=== PATIENT | male | born 1945 | race Caucasian/White ===

== ENCOUNTER 2016-06-01 18:38 | Emergency (ER) | payer MEDICARE, OTHER ==
[~2016-06-01 18:38] MED LIST: ALLE180T33 PO; ALTA1CAP2 PO; ASPI1TAB PO; CRES20TA PO; I CAPS PO; VENL37.598 PO
[2016-06-01] MEDS ORDERED: NORCO, ANEXSIA 5/325MG TABLET (HYDROcodone/ACETAMINOPHEN) As Ordered ONE (21:21)
[2016-06-01] MEDS ORDERED: METHOCARBAMOL 500 MG TAB As Ordered ONE (21:21)
[2016-06-01 22:00] LABS: DIFF SLIDE NUMBER 248; MEAN CORPUSCULAR HEMOGLOBIN 30.3 pg (27.0-33.0); MEAN CORPUSCULAR HGB CONC 33.3 g/dl (32.0-36.5); MEAN CORPUSCULAR VOLUME 91.2 fl (80.0-96.0); PLATELET COUNT, AUTOMATED 261 k/mm3 (150-450); RED CELL DISTRIBUTION WIDTH 13.1 % (11.5-14.5); WHITE BLOOD COUNT 10.7 K/mm3 (4.0-10.0)
[2016-06-01 22:01] LABS: BASO # 0.1 K/mm3 (0.0-0.2); BASO % 0.9 % (0.0-1.0); EOS # 0.2 K/mm3 (0.0-0.50); EOS % 1.8 % (0.0-3.0); LARGE UNSTAINED CELL # 0.1 K/mm3 (0.0-0.4); LARGE UNSTAINED CELL % 1.2 % (0.0-4.0); LYMPH # 2.5 K/mm3 (1.5-4.5); LYMPH % 23.4 % (24.0-44.0); MONO # 0.9 K/mm3 (0.0-0.8); MONO % 8.3 % (0.0-5.0); NEUTROPHILS # 6.9 K/mm3 (1.8-7.7); NEUTROPHILS % 64.4 % (36.0-66.0)
[2016-06-01 22:02] LABS: ADD MORPHOLOGY? YES
[2016-06-01 22:07] LABS: ALBUMIN 3.7 GM/DL (3.2-5.2); ALBUMIN/GLOBULIN RATIO 0.93 (1.00-1.93); ALKALINE PHOSPHATASE 54 U/L (45-117); ALT/SGPT 27 U/L (12-78); ANION GAP 8 MEQ/L (8-16); AST/SGOT 14 U/L (15-37); BILIRUBIN,DIRECT 0.1 MG/DL (0.0-0.2); BILIRUBIN,TOTAL 0.6 MG/DL (0.2-1.0); BLOOD UREA NITROGEN 15 MG/DL (7-18); CALCIUM LEVEL 8.5 MG/DL (8.8-10.2); CARBON DIOXIDE LEVEL 30 MEQ/L (21-32); CHLORIDE LEVEL 105 MEQ/L (98-107); CREATININE FOR GFR 0.93 MG/DL (0.70-1.30); GLOMERULAR FILTRATION RATE > 60.0 (>49); GLUCOSE, FASTING 95 MG/DL (80-110); POTASSIUM SERUM 3.6 MEQ/L (3.5-5.1); SODIUM LEVEL 143 MEQ/L (136-145); TOTAL PROTEIN 7.7 GM/DL (6.4-8.2)
--- NOTE | 2016-06-01 22:29 | EDDOCDS ---
Nurse's Notes [facility] Name: Palomo Terrell Age: 70 yrs Sex: Male : 1945 Arrival Date: 06/01/2016 Time: 18:38 Bed PR1 / 25 Private MD: Vicenta Chauhan., DO Diagnosis: Strain of muscle and tendon of back wall of thorax Presentation: 06/01 18:59 Presenting complaint: Patient states: right sided flank/mid back pain started yesterday ttb around 12. Fell last week -- although no pain at that time. Denies n/v/d/c. Denies symptoms. Radiates around to front of abd. SOB with movement d/t pain. Adult Sepsis Screening: The patient does not have new or worsening altered mentation. Patient's respiratory rate is less than 22. Systolic blood pressure is greater than 100. Patient has a qSOFA score of 0- Negative Sepsis Screen. Suicide/Homicide risk assessment- the patient denies having any suicidal and/or homicidal ideations and does not present with any other emotional, behavioral or mental health complaints. Status: Patient is not a sales and service advisor or dependent. Transition of care: patient was not received from another setting of care. 18:59 Acuity: JAMES Level 3 ttb 18:59 Method Of Arrival: Walkin/Carried/Asstd ttb Triage Assessment: 19:04 General: Appears in no apparent distress, well nourished, well groomed, Behavior is ttb appropriate for age, cooperative, pleasant. Pain: Location: right flank/upper abd Pain currently is 7 out of 10 on a pain scale. At worst was 10 out of 10 on a pain scale. Pain radiates to right upper quadrant back. Neurological: Level of Consciousness is awake, alert. Cardiovascular: Chest pain is denied. Respiratory: Airway is patent Respiratory effort is even, unlabored, Reports SOB with pain Denies labored breathing. GI: Denies constipation, diarrhea, nausea, vomiting. GI: Reports upper abdominal pain. : Denies burning with urination, inability to void, urinary frequency, urgency. Derm: Skin is normal. Injury Description: pt fell from standing. Historical: - Allergies: no known allergies; - Home Meds: 1. ramipril 5 mg Oral cap 1 cap once daily (Last dose: 05/31/2016) 2. venlafaxine 37.5 mg oral cp24 1 cap once daily (Last dose: 06/01/2016 08:00) 3. rosuvastatin 20 mg oral tab 1 tab once daily (Last dose: 05/31/2016) 4. Marika 180 mg Oral tab 1 tab once daily (Last dose: 06/01/2016 08:00) 5. aspirin 81 mg oral TbEC (Last dose: 05/31/2016) 6. I-Caps 280-10-2 mg oral cap daily (Last dose: 05/31/2016) 7. Co Q-10 200 mg oral cap (Last dose: 05/31/2016) 8. Tylenol 325 mg Oral tab 2 tabs every 4 hours (Last dose: 06/01/2016 11:00) - PMHx: Hypertension; - PSHx: Cholecystectomy; - Social history: Smoking status: Patient states was never smoker of tobacco. Patient uses alcohol weekly. Patient/guardian denies using street drugs, No barriers to communication noted, The patient speaks fluent Czech, Speaks appropriately for age. - Family history: Not pertinent. - : The pt / caregiver states he / she is not on anticoagulants. Home medication list is obtained from the patient. - Exposure Risk Screening:: None identified. Screenin:34 Screening information is obtained from the patient. Fall risk: No risks identified. ck1 Assistance ADL's: requires no assistance with activities of daily living. Abuse/DV Screen: The patient / caregiver reports he/she is: not in a situation that causes fear, pain or injury. Nutritional screening: No deficits noted. Advance Directives: Currently, there is no health care proxy. home support is adequate. Assessment: 20:24 General: pt sitting in waiting room with daughter. NAD noted. Awaiting room.. ttb 20:34 General: Appears uncomfortable, Behavior is appropriate for age, cooperative. Pain: ck1 Location: right flank Pain currently is 6 out of 10 on a pain scale. Pain radiates to right upper quadrant Is episodic Aggravated by increased activity, repositioning. : Denies burning with urination, inability to void, urinary frequency. Derm: Skin is intact, is healthy with good turgor, Skin is pink, warm & dry. Musculoskeletal: No deficits noted. 22:26 General: Patient instructed on discharge instructions. Patient asked if there were any jmb questions regarding discharge, patient stated no. Patient signed discharge instructions. Patient discharged in stable condition. . Vital Signs: 18:41 BP 187 / 86; Pulse 94; Resp 18 S; Temp 98.6(O); Pulse Ox 97% on R/A; Weight 127.01 kg gr2 (R); Height 5 ft. 11 in. (180.34 cm) (R); Pain 8/10; 21:39 BP 144 / 98 LA Sitting (man/lg); jmb 22:26 BP 140 / 90; Pulse 84; Resp 20; Temp 97.6(O); Pulse Ox 99% on R/A; Pain 3/10; jmb 18:41 Body Mass Index 39.05 (127.01 kg, 180.34 cm) gr2 Vitals: 18:41 Log In Time: June 01, 2016 at 18:41. gr2 ED Course: 18:39 Patient visited by Lilian Ray. gr2 18:39 Patient moved to Waiting gr2 18:40 Vicenta Chauhan. is Private Physician. gr2 18:42 Patient visited by Lilian Ray. gr2 18:42 Patient moved to Pre RCE gr2 19:01 Triage Initiated ttb 20:25 Patient visited by Kirstin Domingo RN. ttb 20:29 Patient moved to Triage 3 jmb 20:34 The patient / caregiver is instructed regarding the plan of care and ED course. ck1 20:57 Derek Geller PA is PHCP. mo1 20:57 Martín Rudolph DO is Attending Physician. mo1 20:58 Patient visited by Derek Geller PA. mo1 21:32 Patient moved to TR1 jmb 21:32 Liver Profile Sent. jmb 21:32 BMP Sent. jmb 21:32 CBC with Diff Sent. jmb 21:54 [facility] Payment Agreement was scanned into [employer] and attached to record. gjb 22:15 Patient moved to PR1 / 25 jmb 22:16 Vicenta Chauhan. is Referral Physician. mo1 22:26 No IV's were initiated during this patient's visit. No procedures done that require jmb assistance. Administered Medications: 21:32 Drug: HYDROcodone-acetaminophen 1 tabs [hydrocodone 5 mg-acetaminophen 325 mg tablet (1 jmb tabs)] Route: PO; 21:32 Drug: Methocarbamol 1 grams [methocarbamol 500 mg tablet (2 tabs)] Route: PO; [facility] 22:12 CANCELLED (Other Intervention Used): Albuterol 2.5 mg Nebulizer once mo1 Order Results: Lab Order: UA; SPEC'M 06/01/16 00:00 Test: APPEARANCE, URINE; Value: CLEAR; Range: CLEAR; Status: F Test: COLOR, URINE; Value: YELLOW; Range: YELLOW; Status: F Test: PH,URINE; Value: 6.0; Range: 5.0-9.0; Units: UNITS; Status: F Test: SPECIFIC GRAVITY URINE AUTO; Value: 1.016; Range: 1.002-1.035; Status: F Test: PROTEIN, URINE AUTO; Value: NEGATIVE; Range: NEGATIVE; Units: mg/dL; Status: F Test: GLUCOSE, URINE (UA) AUTO; Value: NEGATIVE; Range: NEGATIVE; Units: mg/dL; Status: F Test: KETONE, URINE AUTO; Value: NEGATIVE; Range: NEGATIVE; Units: mg/dL; Status: F Test: UROBILINOGEN, URINE AUTO; Value: 0.2; Range: 0.0-2.0; Units: mg/dL; Status: F Test: BILIRUBIN, URINE AUTO; Value: NEGATIVE; Range: NEGATIVE; Status: F Test: NITRITE, URINE AUTO; Value: NEGATIVE; Range: NEGATIVE; Status: F Test: LEUKOCYTE ESTERASE, URINE AUTO; Value: NEGATIVE; Range: NEGATIVE; Status: F Test: BLOOD, URINE BLOOD; Value: NEGATIVE; Range: NEGATIVE; Status: F Test: WBC, URINE AUTO; Value: 0; Range: 0-3; Units: /HPF; Status: F Test: RBC, URINE AUTO; Value: 3; Range: 0-3; Units: /HPF; Status: F Test: BACTERIA, URINE AUTO; Value: NEGATIVE; Range: NEGATIVE; Status: F Test: SQUAMOUS EPITHELIAL CELL UR AU; Value: 0; Range: 0-6; Units: /HPF; Status: F Test: MUCUS, URINE; Value: SMALL; Range: NEGATIVE; Status: F Test: HYALINE CAST, URINE AUTO; Value: 0; Range: 0-1; Units: /LPF; Status: F Lab Order: CBC with Diff; SPEC'M 06/01/16 21:30 Test: WHITE BLOOD COUNT; Value: 10.7; Range: 4.0-10.0; Abnormal: Above high normal; Units: K/mm3; Status: F Test: RED BLOOD COUNT; Value: 4.77; Range: 4.30-6.10; Units: M/mm3; Status: F Test: HEMOGLOBIN; Value: 14.5; Range: 14.0-18.0; Units: g/dl; Status: F Test: HEMATOCRIT; Value: 43.5; Range: 42.0-52.0; Units: %; Status: F Test: MEAN CORPUSCULAR VOLUME; Value: 91.2; Range: 80.0-96.0; Units: fl; Status: F Test: MEAN CORPUSCULAR HEMOGLOBIN; Value: 30.3; Range: 27.0-33.0; Units: pg; Status: F Test: MEAN CORPUSCULAR HGB CONC; Value: 33.3; Range: 32.0-36.5; Units: g/dl; Status: F Test: RED CELL DISTRIBUTION WIDTH; Value: 13.1; Range: 11.5-14.5; Units: %; Status: F Test: PLATELET COUNT, AUTOMATED; Value: 261; Range: 150-450; Units: k/mm3; Status: F Test: NEUTROPHILS %; Value: 64.4; Range: 36.0-66.0; Units: %; Status: F Test: LYMPH %; Value: 23.4; Range: 24.0-44.0; Abnormal: Below low normal; Units: %; Status: F Test: MONO %; Value: 8.3; Range: 0.0-5.0; Abnormal: Above high normal; Units: %; Status: F Test: EOS %; Value: 1.8; Range: 0.0-3.0; Units: %; Status: F Test: BASO %; Value: 0.9; Range: 0.0-1.0; Units: %; Status: F Test: LARGE UNSTAINED CELL %; Value: 1.2; Range: 0.0-4.0; Units: %; Status: F Test: NEUTROPHILS #; Value: 6.9; Range: 1.8-7.7; Units: K/mm3; Status: F Test: LYMPH #; Value: 2.5; Range: 1.5-4.5; Units: K/mm3; Status: F Test: MONO #; Value: 0.9; Range: 0.0-0.8; Abnormal: Above high normal; Units: K/mm3; Status: F Test: EOS #; Value: 0.2; Range: 0.0-0.50; Units: K/mm3; Status: F Test: BASO #; Value: 0.1; Range: 0.0-0.2; Units: K/mm3; Status: F Test: LARGE UNSTAINED CELL #; Value: 0.1; Range: 0.0-0.4; Units: K/mm3; Status: F Lab Order: [facility]; SPEC'M 06/01/16 21:30 Test: GLUCOSE, FASTING; Value: 95; Range: 80-110; Units: MG/DL; Status: F Test: BLOOD UREA NITROGEN; Value: 15; Range: 7-18; Units: MG/DL; Status: F Test: CREATININE FOR GFR; Value: 0.93; Range: 0.70-1.30; Units: MG/DL; Status: F Test: GLOMERULAR FILTRATION RATE; Value: > 60.0; Range: >49; Status: F Test: SODIUM LEVEL; Value: 143; Range: 136-145; Units: MEQ/L; Status: F Test: POTASSIUM SERUM; Value: 3.6; Range: 3.5-5.1; Units: MEQ/L; Status: F Test: CHLORIDE LEVEL; Value: 105; Range: 98-107; Units: MEQ/L; Status: F Test: CARBON DIOXIDE LEVEL; Value: 30; Range: 21-32; Units: MEQ/L; Status: F Test: ANION GAP; Value: 8; Range: 8-16; Units: MEQ/L; Status: F Test: CALCIUM LEVEL; Value: 8.5; Range: 8.8-10.2; Abnormal: Below low normal; Units: MG/DL; Status: F Test Note: ; Units are mL/min/1.73 m2 Chronic Kidney Disease Staging per NKF: Stage I & II GFR >=60 Normal to Mildly Decreased Stage III GFR 30-59 Moderately Decreased Stage IV GFR 15-29 Severely Decreased Stage V GFR <15 Very Little GFR Left ESRD GFR <15 on BIOMEDICAL ENGINEERING TECHNICIAN Lab Order: Liver Profile; SPEC'M 06/01/16 21:30 Test: AST/SGOT; Value: 14; Range: 15-37; Abnormal: Below low normal; Units: U/L; Status: F Test: ALT/SGPT; Value: 27; Range: 12-78; Units: U/L; Status: F Test: ALKALINE PHOSPHATASE; Value: 54; Range: 45-117; Units: U/L; Status: F Test: BILIRUBIN,TOTAL; Value: 0.6; Range: 0.2-1.0; Units: MG/DL; Status: F Test: BILIRUBIN,DIRECT; Value: 0.1; Range: 0.0-0.2; Units: MG/DL; Status: F Test: TOTAL PROTEIN; Value: 7.7; Range: 6.4-8.2; Units: GM/DL; Status: F Test: ALBUMIN; Value: 3.7; Range: 3.2-5.2; Units: GM/DL; Status: F Test: ALBUMIN/GLOBULIN RATIO; Value: 0.93; Range: 1.00-1.93; Abnormal: Below low normal; Status: F Lab Order: RBC MORPH PROF NO CHARGE; SPEC'M 06/01/16 21:30 Test: PLATELET ESTIMATE; Range: NORMAL; Status: I Outcome: 22:16 Discharge ordered by Provider. mo1 22:26 Discharge Assessment: Patient awake, alert and oriented x 3. No cognitive and/or jmb functional deficits noted. Patient verbalized understanding of disposition instructions. Patient awake and alert. obeys commands, Oriented to person, place and time. Patient verbalized understanding of disposition instructions. Patient has no functional deficits. patient administered narcotics - yes. Pt provided with safe discharge. The following High Risk Discharge criteria are identified: None. Discharged to home ambulatory, with family. Condition: stable. Discharge instructions given to patient, family, Instructed on discharge instructions, follow up and referral plans. medication usage, Demonstrated understanding of instructions, medications, Pt was receptive of discharge instructions/ teaching. Prescriptions given X 2. No special radiology studies were completed. Property sent home with patient. 22:28 Patient left the ED. b Signatures: Ayleen Lopez RN RN ck1 Kirstin Domingo RN RN ttb Lilian Ray gr2 Derek Geller PA PA mo1 Justin Neal,RN RN Riri Harris MTDD
--- NOTE | 2016-06-01 22:29 | EDDOCDS ---
Physician Documentation [facility] Name: Palomo Terrell Age: 70 yrs Sex: Male : 1945 Arrival Date: 06/01/2016 Time: 18:38 Bed PR Private MD: Vicenta Chauhan., DO Disposition: 06/01/16 22:16 Discharged to Home/Self Care. Impression: Strain of muscle and tendon of back wall of thorax. - Condition is Stable. - Discharge Instructions: Back Pain, Adult, Muscle Strain. - Prescriptions for [place] 5- 325 mg Oral Tablet - take 1 tablet by ORAL route every 6 hours As needed MDD: 4 tabs; 12 tablet. Robaxin 500 mg Oral Tablet - take 2 tablet by ORAL route every 6 hours As needed; 40 tablet. - Medication Reconciliation, Local Pharmacy Hours form. - Follow up: Vicenta Chauhan.; When: Call to arrange an appointment; Reason: Recheck today's complaints, Continuance of care. - Problem is new. - Symptoms are unchanged. Historical: - Allergies: no known allergies; - Home Meds: 1. ramipril 5 mg Oral cap 1 cap once daily (Last dose: 05/31/2016) 2. venlafaxine 37.5 mg oral cp24 1 cap once daily (Last dose: 06/01/2016 08:00) 3. rosuvastatin 20 mg oral tab 1 tab once daily (Last dose: 05/31/2016) 4. Marika 180 mg Oral tab 1 tab once daily (Last dose: 06/01/2016 08:00) 5. aspirin 81 mg oral TbEC (Last dose: 05/31/2016) 6. I-Caps 280-10-2 mg oral cap daily (Last dose: 05/31/2016) 7. Co Q-10 200 mg oral cap (Last dose: 05/31/2016) 8. Tylenol 325 mg Oral tab 2 tabs every 4 hours (Last dose: 06/01/2016 11:00) - PMHx: Hypertension; - PSHx: Cholecystectomy; - Social history: Smoking status: Patient states was never smoker of tobacco. Patient uses alcohol weekly. Patient/guardian denies using street drugs, No barriers to communication noted, The patient speaks fluent Romansh, Speaks appropriately for age. - Family history: Not pertinent. - : The pt / caregiver states he / she is not on anticoagulants. Home medication list is obtained from the patient. - Exposure Risk Screening:: None identified. Vital Signs: 06/01 18:41 BP 187 / 86; Pulse 94; Resp 18 S; Temp 98.6(O); Pulse Ox 97% on R/A; Weight 127.01 kg / gr2 280.01 lbs (R); Height 5 ft. 11 in. (180.34 cm) (R); Pain 8/10; 21:39 BP 144 / 98 LA Sitting (man/lg); jmb 22:26 BP 140 / 90; Pulse 84; Resp 20; Temp 97.6(O); Pulse Ox 99% on R/A; Pain 3/10; jmb 18:41 Body Mass Index 39.05 (127.01 kg, 180.34 cm) gr2 MDM: 19:12 UA Ordered. EDMS 20:57 UA Reviewed. mo1 21:19 HYDROcodone-acetaminophen 5 mg-325 mg 1 tabs PO once ordered. mo1 21:19 Methocarbamol 1 grams PO once ordered. mo1 21:20 CBC with Diff Ordered. EDMS 21:20 BMP Ordered. EDMS 21:20 Liver Profile Ordered. EDMS 21:20 Rib Unilat W/PA Chest Only Ordered. EDMS 21:43 Financial registration complete. b 21:54 [facility] Payment Agreement was scanned into [employer] and attached to record. gjb 22:03 RBC MORPH PROF NO CHARGE Ordered. EDMS 22:10 Liver Profile Reviewed. mo1 22:10 BMP Reviewed. mo1 22:10 CBC with Diff Reviewed. mo1 22:12 RBC MORPH PROF NO CHARGE Reviewed. mo1 Administered Medications: 21:32 Drug: HYDROcodone-acetaminophen 1 tabs [hydrocodone 5 mg-acetaminophen 325 mg tablet (1 jmb tabs)] Route: PO; 21:32 Drug: Methocarbamol 1 grams [methocarbamol 500 mg tablet (2 tabs)] Route: PO; jmb 22:12 CANCELLED (Other Intervention Used): Albuterol 2.5 mg Nebulizer once mo1 Signatures: Dispatcher [employer] EDMS Ayleen Lopez RN RN ck1 Kirstin Domingo RN RN ttDerek Echavarria PA PA mo1 Justin Neal RN RN Riri Harris The chart was reviewed and I authenticate all verbal orders and agree with the evaluation and treatment provided.Corrections: (The following items were deleted from the chart) 22:12 22:11 Albuterol 2.5 mg Nebulizer once ordered. mo1 mo1 Attachments: 21:54 [facility] Payment Agreement harshil MTDD
[2016-06-01 22:36] LABS: PLATELET CLUMPS SMALL AMT
--- NOTE | 2016-06-01 23:09 | REP ---
Clinical: Trauma. Cough. Technique: Frontal view of the chest with multiple views of the right hemithorax. Findings: Frontal view of the chest demonstrates no acute cardiopulmonary process. Multiple views of the right hemithorax demonstrates no obvious acute rib fracture or pathology. Impression: Normal right rib series Signed by Chucho Ventura MD 06/01/2016 11:01 P
--- NOTE | 2016-06-03 23:29 | EDDOCDS ---
Physician Documentation [facility] Name: Palomo Terrell Age: 70 yrs Sex: Male : 1945 Arrival Date: 06/01/2016 Time: 18:38 Bed PR Private MD: Vicenta Chauhan., DO Disposition: 06/01/16 22:16 Discharged to Home/Self Care. Impression: Strain of muscle and tendon of back wall of thorax. - Condition is Stable. - Discharge Instructions: Back Pain, Adult, Muscle Strain. - Prescriptions for [place] 5- 325 mg Oral Tablet - take 1 tablet by ORAL route every 6 hours As needed MDD: 4 tabs; 12 tablet. Robaxin 500 mg Oral Tablet - take 2 tablet by ORAL route every 6 hours As needed; 40 tablet. - Medication Reconciliation, Local Pharmacy Hours form. - Follow up: Vicenta Chauhan.; When: Call to arrange an appointment; Reason: Recheck today's complaints, Continuance of care. - Problem is new. - Symptoms are unchanged. Historical: - Allergies: no known allergies; - Home Meds: 1. ramipril 5 mg Oral cap 1 cap once daily (Last dose: 05/31/2016) 2. venlafaxine 37.5 mg oral cp24 1 cap once daily (Last dose: 06/01/2016 08:00) 3. rosuvastatin 20 mg oral tab 1 tab once daily (Last dose: 05/31/2016) 4. Marika 180 mg Oral tab 1 tab once daily (Last dose: 06/01/2016 08:00) 5. aspirin 81 mg oral TbEC (Last dose: 05/31/2016) 6. I-Caps 280-10-2 mg oral cap daily (Last dose: 05/31/2016) 7. Co Q-10 200 mg oral cap (Last dose: 05/31/2016) 8. Tylenol 325 mg Oral tab 2 tabs every 4 hours (Last dose: 06/01/2016 11:00) - PMHx: Hypertension; - PSHx: Cholecystectomy; - Social history: Smoking status: Patient states was never smoker of tobacco. Patient uses alcohol weekly. Patient/guardian denies using street drugs, No barriers to communication noted, The patient speaks fluent Cameroonian, Speaks appropriately for age. - Family history: Not pertinent. - : The pt / caregiver states he / she is not on anticoagulants. Home medication list is obtained from the patient. - Exposure Risk Screening:: None identified. Vital Signs: 06/01 18:41 BP 187 / 86; Pulse 94; Resp 18 S; Temp 98.6(O); Pulse Ox 97% on R/A; Weight 127.01 kg / gr2 280.01 lbs (R); Height 5 ft. 11 in. (180.34 cm) (R); Pain 8/10; 21:39 BP 144 / 98 LA Sitting (man/lg); jmb 22:26 BP 140 / 90; Pulse 84; Resp 20; Temp 97.6(O); Pulse Ox 99% on R/A; Pain 3/10; jmb 18:41 Body Mass Index 39.05 (127.01 kg, 180.34 cm) gr2 MDM: 19:12 UA Ordered. EDMS 20:57 UA Reviewed. mo1 21:19 HYDROcodone-acetaminophen 5 mg-325 mg 1 tabs PO once ordered. mo1 21:19 Methocarbamol 1 grams PO once ordered. mo1 21:20 CBC with Diff Ordered. EDMS 21:20 BMP Ordered. EDMS 21:20 Liver Profile Ordered. EDMS 21:20 Rib Unilat W/PA Chest Only Ordered. EDMS 21:43 Financial registration complete. gjb 21:54 [facility] Payment Agreement was scanned into [employer] and attached to record. gjb 22:03 RBC MORPH PROF NO CHARGE Ordered. EDMS 22:10 Liver Profile Reviewed. mo1 22:10 BMP Reviewed. mo1 22:10 CBC with Diff Reviewed. mo1 22:12 RBC MORPH PROF NO CHARGE Reviewed. mo1 06/02 07:21 T-Sheet-- Draft Copy was scanned into [employer] and attached to record. gb Administered Medications: 06/01 21:32 Drug: HYDROcodone-acetaminophen 1 tabs [hydrocodone 5 mg-acetaminophen 325 mg tablet (1 jmb tabs)] Route: PO; 21:32 Drug: Methocarbamol 1 grams [methocarbamol 500 mg tablet (2 tabs)] Route: PO; jmb 22:12 CANCELLED (Other Intervention Used): Albuterol 2.5 mg Nebulizer once mo1 Signatures: Dispatcher [employer] EDMS Heather Cain, Reg Reg gb Ayleen Lopez RN RN ck1 Kirstin Domingo RN RN gatitob Derek Geller PA PA mo1 Justin Neal RN RN Riri Harris The chart was reviewed and I authenticate all verbal orders and agree with the evaluation and treatment provided.Corrections: (The following items were deleted from the chart) 22:12 22:11 Albuterol 2.5 mg Nebulizer once ordered. mo1 mo1 Attachments: 21:54 [facility] Payment Agreement gjesther 06/02 07:21 T-Sheet-- Draft Copy gb Chart Complete MTDD
--- NOTE | 2016-06-03 23:29 | EDDOCDS ---
Physician Documentation [facility] Name: Palomo Terrell Age: 70 yrs Sex: Male : 1945 Arrival Date: 06/01/2016 Time: 18:38 Bed PR Private MD: Vicenta Chauhan., DO Disposition: 06/01/16 22:16 Discharged to Home/Self Care. Impression: Strain of muscle and tendon of back wall of thorax. - Condition is Stable. - Discharge Instructions: Back Pain, Adult, Muscle Strain. - Prescriptions for [place] 5- 325 mg Oral Tablet - take 1 tablet by ORAL route every 6 hours As needed MDD: 4 tabs; 12 tablet. Robaxin 500 mg Oral Tablet - take 2 tablet by ORAL route every 6 hours As needed; 40 tablet. - Medication Reconciliation, Local Pharmacy Hours form. - Follow up: Vicenta Chauhan.; When: Call to arrange an appointment; Reason: Recheck today's complaints, Continuance of care. - Problem is new. - Symptoms are unchanged. Historical: - Allergies: no known allergies; - Home Meds: 1. ramipril 5 mg Oral cap 1 cap once daily (Last dose: 05/31/2016) 2. venlafaxine 37.5 mg oral cp24 1 cap once daily (Last dose: 06/01/2016 08:00) 3. rosuvastatin 20 mg oral tab 1 tab once daily (Last dose: 05/31/2016) 4. Marika 180 mg Oral tab 1 tab once daily (Last dose: 06/01/2016 08:00) 5. aspirin 81 mg oral TbEC (Last dose: 05/31/2016) 6. I-Caps 280-10-2 mg oral cap daily (Last dose: 05/31/2016) 7. Co Q-10 200 mg oral cap (Last dose: 05/31/2016) 8. Tylenol 325 mg Oral tab 2 tabs every 4 hours (Last dose: 06/01/2016 11:00) - PMHx: Hypertension; - PSHx: Cholecystectomy; - Social history: Smoking status: Patient states was never smoker of tobacco. Patient uses alcohol weekly. Patient/guardian denies using street drugs, No barriers to communication noted, The patient speaks fluent Greek, Speaks appropriately for age. - Family history: Not pertinent. - : The pt / caregiver states he / she is not on anticoagulants. Home medication list is obtained from the patient. - Exposure Risk Screening:: None identified. Vital Signs: 06/01 18:41 BP 187 / 86; Pulse 94; Resp 18 S; Temp 98.6(O); Pulse Ox 97% on R/A; Weight 127.01 kg / gr2 280.01 lbs (R); Height 5 ft. 11 in. (180.34 cm) (R); Pain 8/10; 21:39 BP 144 / 98 LA Sitting (man/lg); jmb 22:26 BP 140 / 90; Pulse 84; Resp 20; Temp 97.6(O); Pulse Ox 99% on R/A; Pain 3/10; jmb 18:41 Body Mass Index 39.05 (127.01 kg, 180.34 cm) gr2 MDM: 19:12 UA Ordered. EDMS 20:57 UA Reviewed. mo1 21:19 HYDROcodone-acetaminophen 5 mg-325 mg 1 tabs PO once ordered. mo1 21:19 Methocarbamol 1 grams PO once ordered. mo1 21:20 CBC with Diff Ordered. EDMS 21:20 BMP Ordered. EDMS 21:20 Liver Profile Ordered. EDMS 21:20 Rib Unilat W/PA Chest Only Ordered. EDMS 21:43 Financial registration complete. gjb 21:54 [facility] Payment Agreement was scanned into [employer] and attached to record. gjb 22:03 RBC MORPH PROF NO CHARGE Ordered. EDMS 22:10 Liver Profile Reviewed. mo1 22:10 BMP Reviewed. mo1 22:10 CBC with Diff Reviewed. mo1 22:12 RBC MORPH PROF NO CHARGE Reviewed. mo1 06/02 07:21 T-Sheet-- Draft Copy was scanned into [employer] and attached to record. gb Administered Medications: 06/01 21:32 Drug: HYDROcodone-acetaminophen 1 tabs [hydrocodone 5 mg-acetaminophen 325 mg tablet (1 jmb tabs)] Route: PO; 21:32 Drug: Methocarbamol 1 grams [methocarbamol 500 mg tablet (2 tabs)] Route: PO; jmb 22:12 CANCELLED (Other Intervention Used): Albuterol 2.5 mg Nebulizer once mo1 Signatures: Dispatcher [employer] EDMS Heather Cain, Reg Reg gb Ayleen Lopez RN RN ck1 Kirstin Domingo RN RN gatitob Derek Geller PA PA mo1 Justin Neal RN RN Riri Harirs The chart was reviewed and I authenticate all verbal orders and agree with the evaluation and treatment provided.Corrections: (The following items were deleted from the chart) 22:12 22:11 Albuterol 2.5 mg Nebulizer once ordered. mo1 mo1 Attachments: 21:54 [facility] Payment Agreement [employer]her 06/02 07:21 T-Sheet-- Draft Copy gb Chart Complete MTDD
--- NOTE | 2016-06-03 23:30 | EDDOCDS ---
Nurse's Notes [facility] Name: Palomo Terrell Age: 70 yrs Sex: Male : 1945 Arrival Date: 06/01/2016 Time: 18:38 Bed PR1 / 25 Private MD: Vicenta Chauhan., DO Diagnosis: Strain of muscle and tendon of back wall of thorax Presentation: 06/01 18:59 Presenting complaint: Patient states: right sided flank/mid back pain started yesterday ttb around 12. Fell last week -- although no pain at that time. Denies n/v/d/c. Denies symptoms. Radiates around to front of abd. SOB with movement d/t pain. Adult Sepsis Screening: The patient does not have new or worsening altered mentation. Patient's respiratory rate is less than 22. Systolic blood pressure is greater than 100. Patient has a qSOFA score of 0- Negative Sepsis Screen. Suicide/Homicide risk assessment- the patient denies having any suicidal and/or homicidal ideations and does not present with any other emotional, behavioral or mental health complaints. Status: Patient is not a real estate services coordinator or dependent. Transition of care: patient was not received from another setting of care. 18:59 Acuity: JAMES Level 3 ttb 18:59 Method Of Arrival: Walkin/Carried/Asstd ttb Triage Assessment: 19:04 General: Appears in no apparent distress, well nourished, well groomed, Behavior is ttb appropriate for age, cooperative, pleasant. Pain: Location: right flank/upper abd Pain currently is 7 out of 10 on a pain scale. At worst was 10 out of 10 on a pain scale. Pain radiates to right upper quadrant back. Neurological: Level of Consciousness is awake, alert. Cardiovascular: Chest pain is denied. Respiratory: Airway is patent Respiratory effort is even, unlabored, Reports SOB with pain Denies labored breathing. GI: Denies constipation, diarrhea, nausea, vomiting. GI: Reports upper abdominal pain. : Denies burning with urination, inability to void, urinary frequency, urgency. Derm: Skin is normal. Injury Description: pt fell from standing. Historical: - Allergies: no known allergies; - Home Meds: 1. ramipril 5 mg Oral cap 1 cap once daily (Last dose: 05/31/2016) 2. venlafaxine 37.5 mg oral cp24 1 cap once daily (Last dose: 06/01/2016 08:00) 3. rosuvastatin 20 mg oral tab 1 tab once daily (Last dose: 05/31/2016) 4. Marika 180 mg Oral tab 1 tab once daily (Last dose: 06/01/2016 08:00) 5. aspirin 81 mg oral TbEC (Last dose: 05/31/2016) 6. I-Caps 280-10-2 mg oral cap daily (Last dose: 05/31/2016) 7. Co Q-10 200 mg oral cap (Last dose: 05/31/2016) 8. Tylenol 325 mg Oral tab 2 tabs every 4 hours (Last dose: 06/01/2016 11:00) - PMHx: Hypertension; - PSHx: Cholecystectomy; - Social history: Smoking status: Patient states was never smoker of tobacco. Patient uses alcohol weekly. Patient/guardian denies using street drugs, No barriers to communication noted, The patient speaks fluent Frisian, Speaks appropriately for age. - Family history: Not pertinent. - : The pt / caregiver states he / she is not on anticoagulants. Home medication list is obtained from the patient. - Exposure Risk Screening:: None identified. Screenin:34 Screening information is obtained from the patient. Fall risk: No risks identified. ck1 Assistance ADL's: requires no assistance with activities of daily living. Abuse/DV Screen: The patient / caregiver reports he/she is: not in a situation that causes fear, pain or injury. Nutritional screening: No deficits noted. Advance Directives: Currently, there is no health care proxy. home support is adequate. Assessment: 20:24 General: pt sitting in waiting room with daughter. NAD noted. Awaiting room.. ttb 20:34 General: Appears uncomfortable, Behavior is appropriate for age, cooperative. Pain: ck1 Location: right flank Pain currently is 6 out of 10 on a pain scale. Pain radiates to right upper quadrant Is episodic Aggravated by increased activity, repositioning. : Denies burning with urination, inability to void, urinary frequency. Derm: Skin is intact, is healthy with good turgor, Skin is pink, warm & dry. Musculoskeletal: No deficits noted. 22:26 General: Patient instructed on discharge instructions. Patient asked if there were any jmb questions regarding discharge, patient stated no. Patient signed discharge instructions. Patient discharged in stable condition. . Vital Signs: 18:41 BP 187 / 86; Pulse 94; Resp 18 S; Temp 98.6(O); Pulse Ox 97% on R/A; Weight 127.01 kg gr2 (R); Height 5 ft. 11 in. (180.34 cm) (R); Pain 8/10; 21:39 BP 144 / 98 LA Sitting (man/lg); jmb 22:26 BP 140 / 90; Pulse 84; Resp 20; Temp 97.6(O); Pulse Ox 99% on R/A; Pain 3/10; jmb 18:41 Body Mass Index 39.05 (127.01 kg, 180.34 cm) gr2 Vitals: 18:41 Log In Time: June 01, 2016 at 18:41. gr2 ED Course: 18:39 Patient visited by Lilian Ray. gr2 18:39 Patient moved to Waiting gr2 18:40 Vicenta Chauhan. is Private Physician. gr2 18:42 Patient visited by Lilian Ray. gr2 18:42 Patient moved to Pre RCE gr2 19:01 Triage Initiated ttb 20:25 Patient visited by Kirstin Domingo RN. ttb 20:29 Patient moved to Triage 3 jmb 20:34 The patient / caregiver is instructed regarding the plan of care and ED course. ck1 20:57 Derek Geller PA is PHCP. mo1 20:57 Martín Rudolph DO is Attending Physician. mo1 20:58 Patient visited by Derek Geller PA. mo1 21:32 Patient moved to TR1 jmb 21:32 Liver Profile Sent. jmb 21:32 BMP Sent. jmb 21:32 CBC with Diff Sent. jmb 21:54 [facility] Payment Agreement was scanned into [employer] and attached to record. gjb 22:15 Patient moved to PR1 / 25 jmb 22:16 Vicenta Chauhan. is Referral Physician. mo1 22:26 No IV's were initiated during this patient's visit. No procedures done that require jmb assistance. 23:49 Rib Unilat W/PA Chest Only Returned. EDMS 06/02 07:21 T-Sheet-- Draft Copy was scanned into [employer] and attached to record. gb Administered Medications: 06/01 21:32 Drug: HYDROcodone-acetaminophen 1 tabs [hydrocodone 5 mg-acetaminophen 325 mg tablet (1 jmb tabs)] Route: PO; 21:32 Drug: Methocarbamol 1 grams [methocarbamol 500 mg tablet (2 tabs)] Route: PO; jmb 22:12 CANCELLED (Other Intervention Used): Albuterol 2.5 mg Nebulizer once mo1 Order Results: Lab Order: UA; SPEC'M 06/01/16 00:00 Test: APPEARANCE, URINE; Value: CLEAR; Range: CLEAR; Status: F Test: COLOR, URINE; Value: YELLOW; Range: YELLOW; Status: F Test: PH,URINE; Value: 6.0; Range: 5.0-9.0; Units: UNITS; Status: F Test: SPECIFIC GRAVITY URINE AUTO; Value: 1.016; Range: 1.002-1.035; Status: F Test: PROTEIN, URINE AUTO; Value: NEGATIVE; Range: NEGATIVE; Units: mg/dL; Status: F Test: GLUCOSE, URINE (UA) AUTO; Value: NEGATIVE; Range: NEGATIVE; Units: mg/dL; Status: F Test: KETONE, URINE AUTO; Value: NEGATIVE; Range: NEGATIVE; Units: mg/dL; Status: F Test: UROBILINOGEN, URINE AUTO; Value: 0.2; Range: 0.0-2.0; Units: mg/dL; Status: F Test: BILIRUBIN, URINE AUTO; Value: NEGATIVE; Range: NEGATIVE; Status: F Test: NITRITE, URINE AUTO; Value: NEGATIVE; Range: NEGATIVE; Status: F Test: LEUKOCYTE ESTERASE, URINE AUTO; Value: NEGATIVE; Range: NEGATIVE; Status: F Test: BLOOD, URINE BLOOD; Value: NEGATIVE; Range: NEGATIVE; Status: F Test: WBC, URINE AUTO; Value: 0; Range: 0-3; Units: /HPF; Status: F Test: RBC, URINE AUTO; Value: 3; Range: 0-3; Units: /HPF; Status: F Test: BACTERIA, URINE AUTO; Value: NEGATIVE; Range: NEGATIVE; Status: F Test: SQUAMOUS EPITHELIAL CELL UR AU; Value: 0; Range: 0-6; Units: /HPF; Status: F Test: MUCUS, URINE; Value: SMALL; Range: NEGATIVE; Status: F Test: HYALINE CAST, URINE AUTO; Value: 0; Range: 0-1; Units: /LPF; Status: F Lab Order: CBC with Diff; SPEC'M 06/01/16 21:30 Test: WHITE BLOOD COUNT; Value: 10.7; Range: 4.0-10.0; Abnormal: Above high normal; Units: K/mm3; Status: F Test: RED BLOOD COUNT; Value: 4.77; Range: 4.30-6.10; Units: M/mm3; Status: F Test: HEMOGLOBIN; Value: 14.5; Range: 14.0-18.0; Units: g/dl; Status: F Test: HEMATOCRIT; Value: 43.5; Range: 42.0-52.0; Units: %; Status: F Test: MEAN CORPUSCULAR VOLUME; Value: 91.2; Range: 80.0-96.0; Units: fl; Status: F Test: MEAN CORPUSCULAR HEMOGLOBIN; Value: 30.3; Range: 27.0-33.0; Units: pg; Status: F Test: MEAN CORPUSCULAR HGB CONC; Value: 33.3; Range: 32.0-36.5; Units: g/dl; Status: F Test: RED CELL DISTRIBUTION WIDTH; Value: 13.1; Range: 11.5-14.5; Units: %; Status: F Test: PLATELET COUNT, AUTOMATED; Value: 261; Range: 150-450; Units: k/mm3; Status: F Test: NEUTROPHILS %; Value: 64.4; Range: 36.0-66.0; Units: %; Status: F Test: LYMPH %; Value: 23.4; Range: 24.0-44.0; Abnormal: Below low normal; Units: %; Status: F Test: MONO %; Value: 8.3; Range: 0.0-5.0; Abnormal: Above high normal; Units: %; Status: F Test: EOS %; Value: 1.8; Range: 0.0-3.0; Units: %; Status: F Test: BASO %; Value: 0.9; Range: 0.0-1.0; Units: %; Status: F Test: LARGE UNSTAINED CELL %; Value: 1.2; Range: 0.0-4.0; Units: %; Status: F Test: NEUTROPHILS #; Value: 6.9; Range: 1.8-7.7; Units: K/mm3; Status: F Test: LYMPH #; Value: 2.5; Range: 1.5-4.5; Units: K/mm3; Status: F Test: MONO #; Value: 0.9; Range: 0.0-0.8; Abnormal: Above high normal; Units: K/mm3; Status: F Test: EOS #; Value: 0.2; Range: 0.0-0.50; Units: K/mm3; Status: F Test: BASO #; Value: 0.1; Range: 0.0-0.2; Units: K/mm3; Status: F Test: LARGE UNSTAINED CELL #; Value: 0.1; Range: 0.0-0.4; Units: K/mm3; Status: F Lab Order: [facility] 06/01/16 21:30 Test: GLUCOSE, FASTING; Value: 95; Range: 80-110; Units: MG/DL; Status: F Test: BLOOD UREA NITROGEN; Value: 15; Range: 7-18; Units: MG/DL; Status: F Test: CREATININE FOR GFR; Value: 0.93; Range: 0.70-1.30; Units: MG/DL; Status: F Test: GLOMERULAR FILTRATION RATE; Value: > 60.0; Range: >49; Status: F Test: SODIUM LEVEL; Value: 143; Range: 136-145; Units: MEQ/L; Status: F Test: POTASSIUM SERUM; Value: 3.6; Range: 3.5-5.1; Units: MEQ/L; Status: F Test: CHLORIDE LEVEL; Value: 105; Range: 98-107; Units: MEQ/L; Status: F Test: CARBON DIOXIDE LEVEL; Value: 30; Range: 21-32; Units: MEQ/L; Status: F Test: ANION GAP; Value: 8; Range: 8-16; Units: MEQ/L; Status: F Test: CALCIUM LEVEL; Value: 8.5; Range: 8.8-10.2; Abnormal: Below low normal; Units: MG/DL; Status: F Test Note: ; Units are mL/min/1.73 m2 Chronic Kidney Disease Staging per NKF: Stage I & II GFR >=60 Normal to Mildly Decreased Stage III GFR 30-59 Moderately Decreased Stage IV GFR 15-29 Severely Decreased Stage V GFR <15 Very Little GFR Left ESRD GFR <15 on SOAKING TANK WORKER Lab Order: Liver Profile; SPEC'M 06/01/16 21:30 Test: AST/SGOT; Value: 14; Range: 15-37; Abnormal: Below low normal; Units: U/L; Status: F Test: ALT/SGPT; Value: 27; Range: 12-78; Units: U/L; Status: F Test: ALKALINE PHOSPHATASE; Value: 54; Range: 45-117; Units: U/L; Status: F Test: BILIRUBIN,TOTAL; Value: 0.6; Range: 0.2-1.0; Units: MG/DL; Status: F Test: BILIRUBIN,DIRECT; Value: 0.1; Range: 0.0-0.2; Units: MG/DL; Status: F Test: TOTAL PROTEIN; Value: 7.7; Range: 6.4-8.2; Units: GM/DL; Status: F Test: ALBUMIN; Value: 3.7; Range: 3.2-5.2; Units: GM/DL; Status: F Test: ALBUMIN/GLOBULIN RATIO; Value: 0.93; Range: 1.00-1.93; Abnormal: Below low normal; Status: F Lab Order: RBC MORPH PROF NO CHARGE; SPEC'M 06/01/16 21:30 Test: PLATELET ESTIMATE; Range: NORMAL; Status: I Test: RBC MORPHOLOGY; Value: NORMAL; Status: F Test: PLATELET CLUMPS; Value: SMALL AMT; Status: F Test: PLATELET ESTIMATE; Value: INVALID; Range: NORMAL; Status: F Radiology Order: Rib Unilat W/PA Chest Only Test: Rib Unilat W/PA Chest Only REASON FOR EXAMINATION: Trauma;Cough; Clinical: Trauma. Cough.; ; Technique: Frontal view of the chest with multiple views of the right; hemithorax.; ; Findings:; Frontal view of the chest demonstrates no acute cardiopulmonary process.; Multiple views of the right hemithorax demonstrates no obvious acute rib fracture; or pathology.; ; Impression:; Normal right rib series; ; ; Signed by; Chucho Ventura MD 06/01/2016 11:01 P; Outcome: 22:16 Discharge ordered by Provider. mo1 22:26 Discharge Assessment: Patient awake, alert and oriented x 3. No cognitive and/or jmb functional deficits noted. Patient verbalized understanding of disposition instructions. Patient awake and alert. obeys commands, Oriented to person, place and time. Patient verbalized understanding of disposition instructions. Patient has no functional deficits. patient administered narcotics - yes. Pt provided with safe discharge. The following High Risk Discharge criteria are identified: None. Discharged to home ambulatory, with family. Condition: stable. Discharge instructions given to patient, family, Instructed on discharge instructions, follow up and referral plans. medication usage, Demonstrated understanding of instructions, medications, Pt was receptive of discharge instructions/ teaching. Prescriptions given X 2. No special radiology studies were completed. Property sent home with patient. 22:28 Patient left the ED. panchito Signatures: Dispatcher [employer] EDMS Heather Cain, Reg Reg Ayleen Lopez,RN RN ck1 Kirstin Domingo RN RN Lilian Quintero gr2 Derek Geller PA PA mo1 Justin Neal RN RN Riri Harris Chart Complete MTDNegrito
== END 2016-06-01 22:28 | disposition home or self-care (01) ==
LOC: M ED 18:38
DX: S29.012A Strain of muscle and tendon of back wall of thorax, initial encounter (principal); W18.09XA Striking against other object with subsequent fall, initial encounter; Y92.89 Other specified places as the place of occurrence of the external cause; Y93.89 Activity, other specified; Y99.8 Other external cause status; I10 Essential (primary) hypertension; Z90.49 Acquired absence of other specified parts of digestive tract; Z79.82 Long term (current) use of aspirin; Z79.899 Other long term (current) drug therapy

== ENCOUNTER → 2016-07-07 | Outpatient (REF) | payer MEDICARE, OTHER | LOC: M LAB REF 11:58 | PROVIDERS: ATTEND Physician Assistant | DX: L02.211 Cutaneous abscess of abdominal wall (principal) ==

== ENCOUNTER → 2017-02-14 | Outpatient (REF) | payer MEDICARE, OTHER ==
[2017-02-14 18:37] LABS: MEAN CORPUSCULAR HEMOGLOBIN 31.7 pg (27.0-33.0); MEAN CORPUSCULAR HGB CONC 34.7 g/dl (32.0-36.5); MEAN CORPUSCULAR VOLUME 91.4 fl (80.0-96.0); WHITE BLOOD COUNT 5.9 K/mm3 (4.0-10.0)
[2017-02-14 18:55] LABS: ALBUMIN 3.7 GM/DL (3.2-5.2); ALBUMIN/GLOBULIN RATIO 1.19 (1.00-1.93); ALKALINE PHOSPHATASE 48 U/L (45-117); ALT/SGPT 26 U/L (12-78); ANION GAP 10 MEQ/L (8-16); AST/SGOT 17 U/L (15-37); BILIRUBIN,TOTAL 0.9 MG/DL (0.2-1.0); BLOOD UREA NITROGEN 13 MG/DL (7-18); CALCIUM LEVEL 8.4 MG/DL (8.8-10.2); CARBON DIOXIDE LEVEL 27 MEQ/L (21-32); CHLORIDE LEVEL 107 MEQ/L (98-107); CHOLESTEROL LEVEL 167 MG/DL (<200); CREATININE FOR GFR 0.78 MG/DL (0.70-1.30); GLOMERULAR FILTRATION RATE > 60.0 (>49); GLUCOSE, FASTING 98 MG/DL (80-110); POTASSIUM SERUM 3.6 MEQ/L (3.5-5.1); SODIUM LEVEL 144 MEQ/L (136-145); TOTAL PROTEIN 6.8 GM/DL (6.4-8.2); TRIGLYCERIDES LEVEL 297 MG/DL (<150)
== END ==
LOC: M SFHCCAPE 07:09
PROVIDERS: ATTEND Family Medicine
DX: G47.33 Obstructive sleep apnea (adult) (pediatric) (principal); I11.9 Hypertensive heart disease without heart failure; R73.03 Prediabetes; E78.5 Hyperlipidemia, unspecified

== ENCOUNTER → 2017-02-20 | Outpatient (CLI) | payer MEDICARE, OTHER ==
--- NOTE | 2017-02-20 15:09 | REP ---
LEFT KNEE: Five views of the left knee are performed. There is no acute fracture or dislocation. There is moderate patellofemoral joint space narrowing with subchondral sclerosis and spurring. There is moderate narrowing of the medial joint compartment with subchondral sclerosis and spurring. Linear bursal calcification is seen above the patella with what appears to be a small joint effusion. IMPRESSION: Degenerative changes. No evidence of acute fracture or dislocation. Signed by Panfilo Gallardo MD 02/20/2017 05:23 P
== END ==
LOC: M ADAMS 11:10
PROVIDERS: ATTEND Family Medicine
DX: S83.92XA Sprain of unspecified site of left knee, initial encounter (principal); M17.12 Unilateral primary osteoarthritis, left knee; X58.XXXA Exposure to other specified factors, initial encounter; Y92.9 Unspecified place or not applicable; Y93.9 Activity, unspecified; Y99.9 Unspecified external cause status
CPT/HCPCS: 73564; G0463

== ENCOUNTER → 2017-10-18 | Outpatient (CLI) | payer MEDICARE, OTHER ==
[2017-10-18 10:09] LABS: HEMATOCRIT 39.7 % (42.0-52.0); MEAN CORPUSCULAR HGB CONC 32.7 g/dl (32.0-36.5); MEAN CORPUSCULAR VOLUME 91.5 fl (80.0-96.0); PLATELET COUNT, AUTOMATED 197 10^3/uL (150-450); RED BLOOD COUNT 4.34 10^6/uL (4.30-6.10); RED CELL DISTRIBUTION WIDTH 13.1 % (11.5-14.5); WHITE BLOOD COUNT 7.5 10^3/uL (4.0-10.0)
[2017-10-18 10:35] LABS: INR 0.99; PROTHROMBIN TIME 13.2 SECONDS (12.4-14.5)
[2017-10-18 10:37] LABS: ERYTHROCYTE SEDIMENTATION RATE 24 mm/hr (0-20)
[2017-10-18 10:52] LABS: ALBUMIN 3.6 GM/DL (3.2-5.2); ALBUMIN/GLOBULIN RATIO 1.13 (1.00-1.93); ALKALINE PHOSPHATASE 49 U/L (45-117); ALT/SGPT 20 U/L (12-78); ANION GAP 6 MEQ/L (8-16); AST/SGOT 17 U/L (7-37); BILIRUBIN,TOTAL 0.7 MG/DL (0.2-1.0); BLOOD UREA NITROGEN 11 MG/DL (7-18); CALCIUM LEVEL 8.6 MG/DL (8.8-10.2); CARBON DIOXIDE LEVEL 28 MEQ/L (21-32); CHLORIDE LEVEL 109 MEQ/L (98-107); CREATININE FOR GFR 0.87 MG/DL (0.70-1.30); GLOMERULAR FILTRATION RATE > 60.0 (>49); GLUCOSE, FASTING 96 MG/DL (70-100); POTASSIUM SERUM 3.8 MEQ/L (3.5-5.1); SODIUM LEVEL 143 MEQ/L (136-145); TOTAL PROTEIN 6.8 GM/DL (6.4-8.2)
== END ==
LOC: M ADMPAT 08:36
DX: Z01.818 Encounter for other preprocedural examination (principal); M17.12 Unilateral primary osteoarthritis, left knee; I10 Essential (primary) hypertension; E78.00 Pure hypercholesterolemia, unspecified; Z79.01 Long term (current) use of anticoagulants
CPT/HCPCS: 71046

== ENCOUNTER 2018-01-15 10:26 | Emergency (ER) | payer MEDICARE, OTHER ==
[2018-01-15 12:14] LABS: BASO # 0.1 10^3/uL (0.0-0.2); BASO % 0.9 % (0.0-1.0); EOS # 0.1 10^3/uL (0.0-0.50); EOS % 1.3 % (0.0-3.0); HEMATOCRIT 38.9 % (42.0-52.0); HEMOGLOBIN 12.3 g/dl (13.5-17.5); IMMATURE GRANULOCYTE % 0.1 % (0-3.0); LYMPH # 1.8 10^3/uL (1.5-4.5); LYMPH % 26.5 % (24.0-44.0); MEAN CORPUSCULAR HEMOGLOBIN 28.5 pg (27.0-33.0); MEAN CORPUSCULAR HGB CONC 31.6 g/dl (32.0-36.5); MEAN CORPUSCULAR VOLUME 90.3 fl (80.0-96.0); MONO # 0.7 10^3/uL (0.0-0.8); MONO % 10.9 % (0.0-5.0); NEUTROPHILS # 4.1 10^3/uL (1.8-7.7); NEUTROPHILS % 60.3 % (36.0-66.0); PLATELET COUNT, AUTOMATED 222 10^3/uL (150-450); RED BLOOD COUNT 4.31 10^6/uL (4.30-6.10); RED CELL DISTRIBUTION WIDTH 13.5 % (11.5-14.5); WHITE BLOOD COUNT 6.7 10^3/uL (4.0-10.0)
[2018-01-15 12:29] LABS: OSMOLALITY SERUM 293 MOSM/KG (280-301)
[2018-01-15 12:33] LABS: ANION GAP 7 MEQ/L (8-16); BLOOD UREA NITROGEN 11 MG/DL (7-18); CALCIUM LEVEL 8.7 MG/DL (8.8-10.2); CARBON DIOXIDE LEVEL 28 MEQ/L (21-32); CHLORIDE LEVEL 108 MEQ/L (98-107); CK-MB VALUE MASS < 1.0 NG/ML (<3.6); CPK CREATINE PHOSPHOKINASE 48 U/L (39-308); CREATININE FOR GFR 0.72 MG/DL (0.70-1.30); GLOMERULAR FILTRATION RATE > 60.0 (>42); GLUCOSE, FASTING 97 MG/DL (70-100); MB/CK RELATIVE INDEX 2.08 (< OR =4); POTASSIUM SERUM 3.5 MEQ/L (3.5-5.1); SODIUM LEVEL 143 MEQ/L (136-145); TROPONIN I < 0.02 NG/ML (< 0.10)
[2018-01-15] MEDS: MECLIZINE 25 MG TABLET PO (13:24)
== END 2018-01-15 13:52 | disposition home or self-care (01) ==
LOC: M ED 10:26
DX: H81.10 Benign paroxysmal vertigo, unspecified ear (principal); I67.82 Cerebral ischemia; I44.4 Left anterior fascicular block; I10 Essential (primary) hypertension; Z83.52 Family history of ear disorders
CPT/HCPCS: 70450

== ENCOUNTER → 2018-02-06 | Outpatient (REF) | payer MEDICARE, OTHER ==
[2018-02-06 18:12] LABS: HEMATOCRIT 40.5 % (42.0-52.0); HEMOGLOBIN 12.7 g/dl (13.5-17.5); MEAN CORPUSCULAR HEMOGLOBIN 28.8 pg (27.0-33.0); MEAN CORPUSCULAR HGB CONC 31.4 g/dl (32.0-36.5); MEAN CORPUSCULAR VOLUME 91.8 fl (80.0-96.0); PLATELET COUNT, AUTOMATED 239 10^3/uL (150-450); RED BLOOD COUNT 4.41 10^6/uL (4.30-6.10); RED CELL DISTRIBUTION WIDTH 13.7 % (11.5-14.5); WHITE BLOOD COUNT 7.1 10^3/uL (4.0-10.0)
[2018-02-06 18:19] LABS: ALBUMIN 3.6 GM/DL (3.2-5.2); ALBUMIN/GLOBULIN RATIO 1.13 (1.00-1.93); ALKALINE PHOSPHATASE 54 U/L (45-117); ALT/SGPT 19 U/L (12-78); ANION GAP 7 MEQ/L (8-16); AST/SGOT 15 U/L (7-37); BILIRUBIN,TOTAL 0.7 MG/DL (0.2-1.0); BLOOD UREA NITROGEN 12 MG/DL (7-18); CALCIUM LEVEL 8.8 MG/DL (8.8-10.2); CARBON DIOXIDE LEVEL 26 MEQ/L (21-32); CHLORIDE LEVEL 109 MEQ/L (98-107); CHOLESTEROL LEVEL 164 MG/DL (<200); CHOLESTEROL RISK RATIO 2.928 (<5); CREATININE FOR GFR 0.75 MG/DL (0.70-1.30); ESTIMATED AVERAGE GLUCOSE 108 MG/DL (60-110); FREE T4 0.83 NG/DL (0.76-1.46); GLOMERULAR FILTRATION RATE > 60.0 (>42); GLUCOSE, FASTING 92 MG/DL (70-100); HDL CHOLESTEROL 56 MG/DL (>40); HEMOGLOBIN A1c 5.4 %; LDL CHOLESTEROL 39 MG/DL (<100); NON-HDL-C 108 MG/DL; POTASSIUM SERUM 3.9 MEQ/L (3.5-5.1); PROSTATIC SPECIFIC AG MONITOR 2.79 NG/ML (< 4.0); SODIUM LEVEL 142 MEQ/L (136-145); TOTAL PROTEIN 6.8 GM/DL (6.4-8.2); TRIGLYCERIDES LEVEL 347 MG/DL (<150)
== END ==
LOC: M SFHCCAPE 07:36
DX: G47.33 Obstructive sleep apnea (adult) (pediatric) (principal); F43.21 Adjustment disorder with depressed mood; I11.9 Hypertensive heart disease without heart failure; E03.9 Hypothyroidism, unspecified; R73.03 Prediabetes; E78.5 Hyperlipidemia, unspecified; R97.20 Elevated prostate specific antigen [PSA]
CPT/HCPCS: 84443

== ENCOUNTER → 2018-03-27 | Outpatient (REF) | payer MEDICARE, OTHER ==
[2018-03-27 17:27] LABS: FREE T4 0.93 NG/DL (0.76-1.46)
== END ==
LOC: M SFHCCAPE 09:27
DX: E03.9 Hypothyroidism, unspecified (principal)
CPT/HCPCS: 84443

== ENCOUNTER → 2018-08-29 | Outpatient (REF) | payer MEDICARE, OTHER ==
[~2018-08-29] MED LIST changes: +CO Q200C10 PO; +MECL1CHW2 PO; +PERC5TAB12 PO; +RAMI1CAP24 PO; +XARE10TA PO
== END ==
LOC: M SFHCADAM 09:57
PROVIDERS: ATTEND Family Medicine
DX: I11.9 Hypertensive heart disease without heart failure (principal); E03.9 Hypothyroidism, unspecified; E78.5 Hyperlipidemia, unspecified; M10.9 Gout, unspecified; R97.20 Elevated prostate specific antigen [PSA]; Z53.8 Procedure and treatment not carried out for other reasons

== ENCOUNTER → 2019-02-20 | Outpatient (REF) | payer MEDICARE, OTHER ==
[~2019-02-20] MED LIST changes: -ASPI1TAB PO; +ASPI81TA26 PO; -CRES20TA PO; +CRES20TA2 PO; +MECL1CHW PO; -MECL1CHW2 PO
[2019-02-20 19:32] LABS: ALBUMIN 3.7 GM/DL (3.2-5.2); ALT/SGPT 25 U/L (12-78); BLOOD UREA NITROGEN 12 MG/DL (7-18); CALCIUM LEVEL 8.9 MG/DL (8.8-10.2); CARBON DIOXIDE LEVEL 27 MEQ/L (21-32); CHLORIDE LEVEL 105 MEQ/L (98-107); CHOLESTEROL LEVEL 145 MG/DL (<200); CHOLESTEROL RISK RATIO 2.735 (<5); CREATININE FOR GFR 0.86 MG/DL (0.70-1.30); FREE T4 1.05 NG/DL (0.76-1.46); GLOMERULAR FILTRATION RATE > 60.0 (>42); GLUCOSE, FASTING 102 MG/DL (70-100); HDL CHOLESTEROL 53 MG/DL (>40); LDL CHOLESTEROL 53 MG/DL (<100); NON-HDL-C 92 MG/DL; POTASSIUM SERUM 3.9 MEQ/L (3.5-5.1); PROSTATIC SPECIFIC AG MONITOR 3.48 NG/ML (< 4.00); SODIUM LEVEL 141 MEQ/L (136-145); TOTAL PROTEIN 6.8 GM/DL (6.4-8.2); TRIGLYCERIDES LEVEL 195 MG/DL (<150); URIC ACID 6.3 MG/DL (3.5-7.2)
== END ==
LOC: M LABDRWCV 17:01
PROVIDERS: ATTEND Family Medicine
DX: I11.9 Hypertensive heart disease without heart failure (principal); E03.9 Hypothyroidism, unspecified; E78.5 Hyperlipidemia, unspecified; M10.9 Gout, unspecified; R97.20 Elevated prostate specific antigen [PSA]

== ENCOUNTER → 2020-03-09 | Outpatient (REF) | payer MEDICARE, OTHER ==
[2020-03-09 13:02] LABS: HEMATOCRIT 40.4 % (42.0-52.0); HEMOGLOBIN 12.6 g/dl (13.5-17.5); MEAN CORPUSCULAR HGB CONC 31.2 g/dl (32.0-36.5); MEAN CORPUSCULAR VOLUME 96.2 fl (80.0-96.0); PLATELET COUNT, AUTOMATED 204 10^3/uL (150-450); WHITE BLOOD COUNT 5.7 10^3/uL (4.0-10.0)
[2020-03-09 13:39] LABS: ALBUMIN 3.3 GM/DL (3.2-5.2); ALT/SGPT 31 U/L (12-78); BILIRUBIN,TOTAL 0.6 MG/DL (0.2-1.0); BLOOD UREA NITROGEN 9 MG/DL (7-18); CALCIUM LEVEL 9.1 MG/DL (8.8-10.2); CARBON DIOXIDE LEVEL 30 MEQ/L (21-32); CHLORIDE LEVEL 109 MEQ/L (98-107); CHOLESTEROL LEVEL 129 MG/DL (<200); CHOLESTEROL RISK RATIO 1.675 (<5); CREATININE FOR GFR 0.66 MG/DL (0.70-1.30); FREE T4 1.01 NG/DL (0.76-1.46); GLOMERULAR FILTRATION RATE > 60.0 (>42); GLUCOSE, FASTING 97 MG/DL (70-100); HDL CHOLESTEROL 77 MG/DL (>40); LDL CHOLESTEROL 39 MG/DL (<100); NON-HDL-C 52 MG/DL; POTASSIUM SERUM 4.3 MEQ/L (3.5-5.1); PROSTATIC SPECIFIC AG MONITOR 4.55 NG/ML (< 4.00); SODIUM LEVEL 143 MEQ/L (136-145); TOTAL PROTEIN 6.2 GM/DL (6.4-8.2); TRIGLYCERIDES LEVEL 67 MG/DL (<150)
[2020-03-09 14:02] LABS: HEMOGLOBIN A1c 5.3 %
== END ==
LOC: M SFHCADAM 10:24
PROVIDERS: ATTEND Family Medicine
DX: F43.21 Adjustment disorder with depressed mood (principal); G47.33 Obstructive sleep apnea (adult) (pediatric); I11.9 Hypertensive heart disease without heart failure; E03.9 Hypothyroidism, unspecified; R73.03 Prediabetes; E78.5 Hyperlipidemia, unspecified; R97.20 Elevated prostate specific antigen [PSA]
CPT/HCPCS: 80053; 80061; 83036; 84153; 84439; 84443; 85027; G0463

== ENCOUNTER → 2021-03-28 | Outpatient (REF) | payer MEDICARE, OTHER ==
[2021-03-28 18:00] LABS: HEMATOCRIT 41.1 % (42.0-52.0); MEAN CORPUSCULAR HEMOGLOBIN 30.4 pg (27.0-33.0); MEAN CORPUSCULAR HGB CONC 31.6 g/dl (32.0-36.5); PLATELET COUNT, AUTOMATED 233 10^3/uL (150-450); RED BLOOD COUNT 4.28 10^6/uL (4.30-6.10); WHITE BLOOD COUNT 5.1 10^3/uL (4.0-10.0)
[2021-03-28 18:04] LABS: HEMOGLOBIN A1c 5.3 %
[2021-03-28 18:16] LABS: ALBUMIN 3.5 GM/DL (3.2-5.2); ALT/SGPT 29 U/L (12-78); BLOOD UREA NITROGEN 13 MG/DL (7-18); CALCIUM LEVEL 9.3 MG/DL (8.8-10.2); CARBON DIOXIDE LEVEL 31 MEQ/L (21-32); CHLORIDE LEVEL 108 MEQ/L (98-107); CHOLESTEROL LEVEL 156 MG/DL (<200); CHOLESTEROL RISK RATIO 2.025 (<5); CREATININE FOR GFR 0.75 MG/DL (0.70-1.30); FREE T4 1.02 NG/DL (0.76-1.46); GLOMERULAR FILTRATION RATE > 60.0 (>42); GLUCOSE, FASTING 95 MG/DL (70-100); HDL CHOLESTEROL 77 MG/DL (>40); LDL CHOLESTEROL 70 MG/DL (<100); NON-HDL-C 79 MG/DL; POTASSIUM SERUM 4.2 MEQ/L (3.5-5.1); PROSTATIC SPECIFIC AG MONITOR 6.47 NG/ML (< 4.00); SODIUM LEVEL 142 MEQ/L (136-145); TOTAL PROTEIN 6.5 GM/DL (6.4-8.2); TRIGLYCERIDES LEVEL 45 MG/DL (<150)
== END ==
LOC: M SFHCCAPE 07:42
PROVIDERS: ATTEND Family Medicine
DX: G47.33 Obstructive sleep apnea (adult) (pediatric) (principal); I11.9 Hypertensive heart disease without heart failure; E03.9 Hypothyroidism, unspecified; R73.03 Prediabetes; E78.5 Hyperlipidemia, unspecified; R97.20 Elevated prostate specific antigen [PSA]; Z23 Encounter for immunization

== ENCOUNTER → 2021-10-19 | Outpatient (REF) | payer MEDICARE, OTHER ==
[2021-10-19 17:28] LABS: ALBUMIN 3.7 GM/DL (3.2-5.2); ALT/SGPT 33 U/L (12-78); BILIRUBIN,TOTAL 1.3 MG/DL (0.2-1.0); BLOOD UREA NITROGEN 14 MG/DL (7-18); CALCIUM LEVEL 8.8 MG/DL (8.8-10.2); CARBON DIOXIDE LEVEL 31 MEQ/L (21-32); CHLORIDE LEVEL 108 MEQ/L (98-107); CREATININE FOR GFR 0.76 MG/DL (0.70-1.30); FREE T4 0.93 NG/DL (0.76-1.46); GLOMERULAR FILTRATION RATE > 60.0 (>42); GLUCOSE, FASTING 87 MG/DL (70-100); POTASSIUM SERUM 3.9 MEQ/L (3.5-5.1); PROSTATIC SPECIFIC AG MONITOR 5.08 NG/ML (< 4.00); SODIUM LEVEL 143 MEQ/L (136-145); TOTAL PROTEIN 6.6 GM/DL (6.4-8.2)
== END ==
LOC: M SFHCCAPE 07:53
PROVIDERS: ATTEND Family Medicine
DX: E03.9 Hypothyroidism, unspecified (principal); R73.03 Prediabetes; R97.20 Elevated prostate specific antigen [PSA]

== ENCOUNTER → 2022-02-01 | Outpatient (CLI) | payer MEDICARE, OTHER ==
[~2022-02-01] MED LIST changes: +ECOT81TA5 PO; +LEVO50TA5 PO; +VITA-243 PO; +VITMTA PO
== END ==
LOC: M LABSMTC 09:16
PROVIDERS: ATTEND Anesthesiology
DX: Z01.818 Encounter for other preprocedural examination (principal); Z11.52 Encounter for screening for COVID-19

== ENCOUNTER 2022-02-06 08:35 | Day surgery (SDC) | payer MEDICARE, OTHER ==
[~2022-02-06] VITALS: Ht 180.3 cm; Wt 94.3 kg
[~2022-02-06 08:35] MED LIST changes: +LIDOCAINE 2% 100MG/5ML SDV (FOR ANES.) As Ordered ONE; +NS 1,000 ML IV ONE; +propofoL 200 MG/20 ML VIAL As Ordered ONE
[2022-02-06 10:31] VITALS: BP 109/66
== END 2022-02-06 10:49 | disposition home or self-care (01) ==
LOC: M OPP 08:35
PROVIDERS: ATTEND Internal Medicine Gastroenterology
DX: Z12.11 Encounter for screening for malignant neoplasm of colon (principal); Z86.010 Personal history of colon polyps; K64.0 First degree hemorrhoids; K57.30 Diverticulosis of large intestine without perforation or abscess without bleeding; I10 Essential (primary) hypertension; E03.9 Hypothyroidism, unspecified; M19.90 Unspecified osteoarthritis, unspecified site; G47.30 Sleep apnea, unspecified; Z99.89 Dependence on other enabling machines and devices; Z79.02 Long term (current) use of antithrombotics/antiplatelets; Z79.82 Long term (current) use of aspirin; Z79.899 Other long term (current) drug therapy

== ENCOUNTER → 2022-03-23 | Outpatient (REF) | payer MEDICARE, OTHER ==
[~2022-03-23] MED LIST changes: -LIDOCAINE 2% 100MG/5ML SDV (FOR ANES.) As Ordered ONE; -NS 1,000 ML IV ONE; -propofoL 200 MG/20 ML VIAL As Ordered ONE
[2022-03-23 19:31] LABS: HEMATOCRIT 40.4 % (42.0-52.0); HEMOGLOBIN 12.7 g/dl (13.5-17.5); MEAN CORPUSCULAR HEMOGLOBIN 31.1 pg (27.0-33.0); MEAN CORPUSCULAR HGB CONC 31.4 g/dl (32.0-36.5); PLATELET COUNT, AUTOMATED 216 10^3/uL (150-450); RED BLOOD COUNT 4.08 10^6/uL (4.30-6.10); WHITE BLOOD COUNT 4.9 10^3/uL (4.0-10.0)
[2022-03-23 20:37] LABS: ALBUMIN 3.5 GM/DL (3.2-5.2); ALKALINE PHOSPHATASE 51 U/L (45-117); ALT/SGPT 30 U/L (12-78); AST/SGOT 19 U/L (7-37); BILIRUBIN,TOTAL 1.1 MG/DL (0.2-1.0); BLOOD UREA NITROGEN 14 MG/DL (7-18); CARBON DIOXIDE LEVEL 31 MEQ/L (21-32); CHLORIDE LEVEL 106 MEQ/L (98-107); CHOLESTEROL LEVEL 141 MG/DL (<200); CHOLESTEROL RISK RATIO 1.678 (<5); CREATININE FOR GFR 0.72 MG/DL (0.70-1.30); FREE T4 1.03 NG/DL (0.76-1.46); GLOMERULAR FILTRATION RATE > 60.0 (>42); GLUCOSE, FASTING 91 MG/DL (70-100); HDL CHOLESTEROL 84 MG/DL (>40); LDL CHOLESTEROL 47 MG/DL (<100); NON-HDL-C 57 MG/DL; POTASSIUM SERUM 4.1 MEQ/L (3.5-5.1); PROSTATIC SPECIFIC AG MONITOR 6.83 NG/ML (< 4.00); SODIUM LEVEL 141 MEQ/L (136-145); TOTAL PROTEIN 6.5 GM/DL (6.4-8.2); TRIGLYCERIDES LEVEL 50 MG/DL (<150)
[2022-03-23 21:11] LABS: HEMOGLOBIN A1c 5.4 %
== END ==
LOC: M SFHCCAPE 08:09
PROVIDERS: ATTEND Family Medicine
DX: E03.9 Hypothyroidism, unspecified (principal); R97.20 Elevated prostate specific antigen [PSA]; R73.03 Prediabetes; I11.9 Hypertensive heart disease without heart failure; E78.5 Hyperlipidemia, unspecified; G47.33 Obstructive sleep apnea (adult) (pediatric)

== ENCOUNTER → 2022-11-07 | Outpatient (REF) | payer MEDICARE, OTHER ==
[2022-11-07 18:55] LABS: HEMATOCRIT 41.7 % (42.0-52.0); MEAN CORPUSCULAR HEMOGLOBIN 30.3 pg (27.0-33.0); MEAN CORPUSCULAR HGB CONC 31.2 g/dl (32.0-36.5); MEAN CORPUSCULAR VOLUME 97.2 fl (80.0-96.0); PLATELET COUNT, AUTOMATED 212 10^3/uL (150-450); RED BLOOD COUNT 4.29 10^6/uL (4.30-6.10)
[2022-11-07 19:10] LABS: ALBUMIN 3.6 G/DL (3.2-5.2); ALKALINE PHOSPHATASE 48 U/L (46-116); ALT/SGPT 26 U/L (7.0-40); AST/SGOT 22 U/L (<34); BILIRUBIN,TOTAL 1.3 MG/DL (0.3-1.2); BLOOD UREA NITROGEN 17 MG/DL (9-23); CALCIUM LEVEL 9.2 MG/DL (8.3-10.6); CARBON DIOXIDE LEVEL 30 MMOL/L (20-31); CHLORIDE LEVEL 107 MMOL/L (98-107); CHOLESTEROL LEVEL 138 MG/DL (<200); CHOLESTEROL RISK RATIO 1.97 (<5); CREATININE FOR GFR 0.76 MG/DL (0.70-1.30); FREE T4 1.03 NG/DL (0.89-1.76); GLOMERULAR FILTRATION RATE > 60.0 (>42); GLUCOSE, FASTING 85 MG/DL (74-106); LDL CHOLESTEROL 53.8 MG/DL (<100); POTASSIUM SERUM 3.9 MMOL/L (3.5-5.1); SODIUM LEVEL 141 MMOL/L (136-145); THYROID STIMULATING HORMONE 2.938 uIU/ML (0.55-4.78); TOTAL PROTEIN 6.2 G/DL (5.7-8.2); TRIGLYCERIDES LEVEL 71 MG/DL (<150)
[2022-11-07 19:47] LABS: HEMOGLOBIN A1c 5.1 % (4.0-6.0)
== END ==
LOC: M SFHCCAPE 07:42
PROVIDERS: ATTEND Family Medicine
DX: R73.03 Prediabetes (principal); E03.9 Hypothyroidism, unspecified; G47.33 Obstructive sleep apnea (adult) (pediatric); I11.9 Hypertensive heart disease without heart failure; E78.5 Hyperlipidemia, unspecified; R97.20 Elevated prostate specific antigen [PSA]

== ENCOUNTER → 2023-03-07 | Outpatient (REF) | payer MEDICARE, OTHER | LOC: M SFHCCAPE 08:36 | PROVIDERS: ATTEND Family Medicine | DX: R97.20 Elevated prostate specific antigen [PSA] (principal) ==

== ENCOUNTER → 2023-11-15 | Outpatient (REF) | payer MEDICARE, OTHER ==
[~2023-11-15] MED LIST changes: -RAMI1CAP24 PO; +RAMI5CAP60 PO
[2023-11-15 18:33] LABS: HEMATOCRIT 40.3 % (42.0-52.0); HEMOGLOBIN 13.1 g/dl (13.5-17.5); MEAN CORPUSCULAR HEMOGLOBIN 31.6 pg (27.0-33.0); MEAN CORPUSCULAR HGB CONC 32.5 g/dl (32.0-36.5); MEAN CORPUSCULAR VOLUME 97.3 fl (80.0-96.0); PLATELET COUNT, AUTOMATED 202 10^3/uL (150-450); RED BLOOD COUNT 4.14 10^6/uL (4.30-6.10); WHITE BLOOD COUNT 5.2 10^3/uL (4.0-10.0)
[2023-11-15 19:11] LABS: ALBUMIN 3.5 G/DL (3.2-5.2); ALKALINE PHOSPHATASE 49 U/L (46-116); ALT/SGPT 24 U/L (7.0-40); AST/SGOT 19 U/L (<34); BLOOD UREA NITROGEN 17 MG/DL (9-23); CALCIUM LEVEL 8.9 MG/DL (8.3-10.6); CARBON DIOXIDE LEVEL 31 MMOL/L (20-31); CHLORIDE LEVEL 108 MMOL/L (98-107); CHOLESTEROL LEVEL 144 MG/DL (<200); CHOLESTEROL RISK RATIO 2.08 (<5); CREATININE FOR GFR 0.73 MG/DL (0.70-1.30); GLOMERULAR FILTRATION RATE > 60.0 (>42); GLUCOSE, FASTING 94 MG/DL (74-106); HDL CHOLESTEROL 68.9 MG/DL (>40); LDL CHOLESTEROL 63.5 MG/DL (<100); NON-HDL-C 75.1 MG/DL; POTASSIUM SERUM 4.2 MMOL/L (3.5-5.1); PROSTATIC SPECIFIC AG MONITOR 5.56 NG/ML (< 4.00); SODIUM LEVEL 143 MMOL/L (136-145); TRIGLYCERIDES LEVEL 58 MG/DL (<150)
[2023-11-15 19:15] LABS: FREE T4 1.08 NG/DL (0.89-1.76)
[2023-11-15 19:28] LABS: HEMOGLOBIN A1c 5.1 % (4.0-6.0)
== END ==
LOC: M SFHCCAPE 07:37
PROVIDERS: ATTEND Family Medicine
DX: I11.9 Hypertensive heart disease without heart failure (principal); G47.33 Obstructive sleep apnea (adult) (pediatric); E78.5 Hyperlipidemia, unspecified; E03.9 Hypothyroidism, unspecified; R73.03 Prediabetes; R97.20 Elevated prostate specific antigen [PSA]

== ENCOUNTER → 2024-10-16 | Outpatient (REF) | payer MEDICARE, OTHER ==
[2024-10-16 15:07] LABS: HEMATOCRIT 41.9 % (42.0-52.0); MEAN CORPUSCULAR HEMOGLOBIN 30.6 pg (27.0-33.0); MEAN CORPUSCULAR VOLUME 98.6 fl (80.0-96.0); PLATELET COUNT, AUTOMATED 247 10^3/uL (150-450); RED BLOOD COUNT 4.25 10^6/uL (4.30-6.10); WHITE BLOOD COUNT 6.4 10^3/uL (4.0-10.0)
[2024-10-16 15:16] LABS: HEMOGLOBIN A1c 5.2 % (4.0-6.0)
[2024-10-16 15:22] LABS: URIC ACID 5.8 MG/DL (3.7-9.2)
[2024-10-16 15:25] LABS: ALBUMIN 3.7 G/DL (3.2-5.2); ALKALINE PHOSPHATASE 52 U/L (40-129); ALT/SGPT 33 U/L (7.0-40); AST/SGOT 35 U/L (<34); BILIRUBIN,TOTAL 0.8 MG/DL (0.3-1.2); BLOOD UREA NITROGEN 19 MG/DL (9-23); CALCIUM LEVEL 9.2 MG/DL (8.3-10.6); CARBON DIOXIDE LEVEL 32 MMOL/L (20-31); CHLORIDE LEVEL 105 MMOL/L (98-107); CHOLESTEROL LEVEL 133 MG/DL (<200); CHOLESTEROL RISK RATIO 1.91 (<5); CREATININE FOR GFR 0.77 MG/DL (0.70-1.30); GLOMERULAR FILTRATION RATE > 90.0 (>42); GLUCOSE, FASTING 87 MG/DL (74-106); HDL CHOLESTEROL 69.4 MG/DL (>40); LDL CHOLESTEROL 51.4 MG/DL (<100); NON-HDL-C 63.6 MG/DL; POTASSIUM SERUM 4.7 MMOL/L (3.5-5.1); SODIUM LEVEL 143 MMOL/L (136-145); TOTAL PROTEIN 6.6 G/DL (5.7-8.2); TRIGLYCERIDES LEVEL 61 MG/DL (<150)
[2024-10-16 15:30] LABS: THYROID STIMULATING HORMONE 2.284 uIU/ML (0.55-4.78)
== END ==
LOC: M SFHCADAM 11:04
PROVIDERS: ATTEND Family Medicine
DX: F43.21 Adjustment disorder with depressed mood (principal); I11.9 Hypertensive heart disease without heart failure; E03.9 Hypothyroidism, unspecified; Z13.1 Encounter for screening for diabetes mellitus; E78.5 Hyperlipidemia, unspecified; M10.9 Gout, unspecified; N40.0 Benign prostatic hyperplasia without lower urinary tract symptoms

== ENCOUNTER → 2024-12-04 | Outpatient (CLI) | payer MEDICARE, OTHER | LOC: M PLALAB 10:00 | PROVIDERS: ATTEND Physician Assistant | DX: R97.20 Elevated prostate specific antigen [PSA] (principal) ==

== ENCOUNTER → 2025-01-06 | Outpatient (REF) | payer MEDICARE, OTHER | LOC: M SMT 13:29 | PROVIDERS: ATTEND Urology | DX: R97.20 Elevated prostate specific antigen [PSA] (principal) ==

== ENCOUNTER → 2025-03-26 | Outpatient (REF) | payer MEDICARE, OTHER ==
[2025-03-30 15:26] LABS: PSA % FREE 13.0 % (calc) (>25); PSA FREE 0.6 ng/mL; PSA TOTAL 4.6 ng/mL (< OR = 4.0)
== END ==
LOC: M SFHCCAPE 08:25
PROVIDERS: ATTEND Urology
DX: R97.20 Elevated prostate specific antigen [PSA] (principal)